=== PATIENT | male | born 1995 | race African-American/Black ===

== ENCOUNTER 2019-08-26 11:11 | Emergency (ER) | payer OTHER, SELFPAY ==
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
[2019-08-26 11:16] VITALS: BP 114/68; PULSE 71; RESP 20; O2SAT 100
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
[2019-08-26] MEDS: KETOROLAC 30 MG/ML VIAL (*BKC) IV PUSH (12:09)
[2019-08-26 12:30] VITALS: BP 127/88; PULSE 80; RESP 20; TEMP 36.6; O2SAT 99
== END 2019-08-26 12:32 | disposition home or self-care (01) ==
PROVIDERS: Emergency Provider Emergency Medicine; PCP Family Medicine
DX: S39.012A Strain of muscle, fascia and tendon of lower back, initial encounter (principal); J45.909 Unspecified asthma, uncomplicated; V48.5XXA Car driver injured in noncollision transport accident in traffic accident, initial encounter
CPT/HCPCS: 72131; 96374; 96375; 99284; J1885; J3360